=== PATIENT | male | born 1995 | race African-American/Black ===

== ENCOUNTER 2017-06-27 18:23 | Emergency (ER) | payer SELFPAY ==
[~2017-06-27] VITALS: Ht 185.4 cm; Wt 68.0 kg
[2017-06-27 18:52] VITALS: BP 134/69
--- NOTE | 2017-06-27 18:57 | PHYS DOC ---
Past Medical History Past Medical History: No Pertinent History Past Surgical History: No Surgical History Alcohol Use: None Drug Use: None Adult General Chief Complaint Chief Complaint: BACK INJURY HPI HPI Patient is a 22 year old male presents to the emergency department with complaints of pain in the coccyx. He states that he jumped over a railing and hit his coccyx region on a doorknob. This happened yesterday. He's had no blood in the bowel. He's had no abdominal pain. No testicular pain. Ambulates without difficulty. He working the benefit with Review of Systems Review of Systems Constitutional: Denies fever or chills [] Eyes: Denies change in visual acuity, redness, or eye pain [] HENT: Denies nasal congestion or sore throat [] Respiratory: Denies cough or shortness of breath [] Cardiovascular: No additional information not addressed in HPI [] GI: Denies abdominal pain, nausea, vomiting, bloody stools or diarrhea [] : Denies dysuria or hematuria [] Musculoskeletal: Low back pain Integument: Denies rash or skin lesions [] Neurologic: Denies headache, focal weakness or sensory changes [] Endocrine: Denies polyuria or polydipsia [] Current Medications Current Medications Current Medications Medications (Trade) Dose Ordered Sig/[place] Start Time Stop Time Status Last Admin Dose Admin Ketorolac Tromethamine (Toradol Im) 60 mg 1X ONCE 06/27/17 19:00 06/27/17 19:02 DC Allergies Allergies Allergies Coded Allergies Type Severity Reaction Last Updated Verified No Known Drug Allergies 06/27/17 No Physical Exam Physical Exam Constitutional: Well developed, well nourished, no acute distress, non-toxic appearance. [] HENT: Normocephalic, atraumatic, bilateral external ears normal, oropharynx moist, no oral exudates, nose normal. [] Eyes: PERRLA, EOMI, conjunctiva normal, no discharge. [] Neck: Normal range of motion, no tenderness, supple, no stridor. [] Cardiovascular:Heart rate regular rhythm, no murmur [] Lungs & Thorax: Bilateral breath sounds clear to auscultation [] Abdomen: Bowel sounds normal, soft, no tenderness, no masses, no pulsatile masses. [] Skin: Warm, dry, no erythema, no rash. [] Back: Mild tenderness over the sacrum without evidence of trauma. Extremities: No tenderness, no cyanosis, no clubbing, ROM intact, no edema. [] Neurologic: Alert and oriented X 3, normal motor function, normal sensory function, no focal deficits noted. [] Psychologic: Affect normal, judgement normal, mood normal. [] Current Patient Data Vital Signs Vital Signs Date Time Temp Pulse Resp B/P (MAP) Pulse Ox O2 Delivery O2 Flow Rate FiO2 06/27/17 18:52 98.0 50 20 100 Room Air 98.0 EKG EKG [] Radiology/Procedures Radiology/Procedures Sacrum coccyx x-ray reviewed, does have a fractured coccyx.[] Course & Med Decision Making Course & Med Decision Making Pertinent Labs and Imaging studies reviewed. (See chart for details) Plan will be to discharge home with [id number] stool softener, Tylenol with codeine one by mouth every 6 hours when necessary for pain #12 no refills, fibrous diet. Return to the emergency department new symptoms or concerns or worsening of current condition. Follow-up primary care in 3-5 days, sooner problems arise Dragon Disclaimer Dragon Disclaimer This electronic medical record was generated, in whole or in part, using a voice recognition dictation system. Departure Departure Impression: Primary Impression: Fractured coccyx Referrals: NOAH ARCE (PCP) Patient Instructions: RICE - Routine Care for Injuries Additional Instructions: Avoid constipation, fibrous diet and [id number] stool softener as needed. Ice to affected area as needed. Follow-up primary care in 3-5 days, sooner problems arise. Scripts Acetaminophen With Codeine (TYLENOL WITH CODEINE #3 TABLET) 1 Each Tablet 1 TAB PO PRN Q6HRS Y for PAIN, #20 TAB Prov: JEREMIAS BANGURA [employer] 06/27/17 Problem Qualifiers Primary Impression: Fractured coccyx Encounter type: initial encounter Fracture type: closed Qualified Codes: S32.2XXA - Fracture of coccyx, initial encounter for closed fracture JEREMIAS BANGURA [employer] ENG[employer] Jun 27, 2017 18:57
[2017-06-27] MEDS ORDERED: KETOROLAC 60 MG/2 ML INJ. IM ONE (19:00)
[2017-06-27] MEDS ORDERED: ACET-704 PO (19:38)
--- NOTE | 2017-06-28 08:23 | RAD ---
Indication fall, pain. AP and lateral views targeted to the sacrum and coccyx were obtained. No acute or definite significant bony finding is seen. Normal angulation is seen associated with the coccyx.
== END 2017-06-27 20:09 | disposition home or self-care (01) ==
LOC: ER 18:23
DX: S32.2XXA Fracture of coccyx, initial encounter for closed fracture (principal); W22.8XXA Striking against or struck by other objects, initial encounter; Y93.89 Activity, other specified; Y99.8 Other external cause status; Y92.89 Other specified places as the place of occurrence of the external cause
CPT/HCPCS: 72220; 96372; 99284; J1885